=== PATIENT | male | born 1965 | race Caucasian/White ===

== ENCOUNTER 2020-10-05 13:43 | Emergency (ER) | payer MEDICARE, OTHER ==
[~2020-10-05] VITALS: Ht 185.4 cm; Wt 82.0 kg
[2020-10-05] MEDS ORDERED: HYDROmorphone 2 MG/ML VIAL IVP ONE (14:15)
[2020-10-05 14:58] LABS: BASOPHILS % (AUTO) 1.3 % (0.0-2.0); EOSINOPHILS % (AUTO) 0.3 % (1.0-6.0); HEMOGLOBIN 14.4 g/dL (13.5-17.5); LYMPHOCYTES # (AUTO) 1.5 K/uL (1.0-4.8); LYMPHOCYTES % (AUTO) 15.6 % (22.0-44.0); MEAN CORPUSCULAR HEMOGLOBIN 27.9 pg (26.0-34.0); MEAN CORPUSCULAR HGB CONC 33.5 G/dL (31.0-37.0); MEAN CORPUSCULAR VOLUME 83 fL (80-100); MONOCYTES # (AUTO) 0.5 K/uL (0.1-1.0); MONOCYTES % (AUTO) 5.6 % (2.0-9.0); NEUTROPHILS # (AUTO) 7.3 K/uL (1.8-7.7); NEUTROPHILS % (AUTO) 77.2 % (40.0-70.0); PLATELET COUNT (AUTO) 238 K/uL (150-450); RED BLOOD CELL COUNT(AUTO) 5.16 MIL/uL (4.50-5.90); RED CELL DISTRIBUTION WIDTH 14.3 % (11.5-14.5)
[2020-10-05 15:23] LABS: CALCIUM, TOTAL 9.7 mg/dL (8.8-10.5); CREATININE 1.67 mg/dL (0.60-1.30); POTASSIUM 3.9 mmol/L (3.5-5.1)
[2020-10-05 15:29] LABS: ALBUMIN 4.5 g/dL (3.4-5.0); BILIRUBIN,TOTAL 0.3 mg/dL (0.1-1.0); TOTAL PROTEIN, SERUM 8.6 g/dL (6.4-8.2)
[2020-10-05 15:30] LABS: COVID AG,FIA SOURCE NASAL SWAB
[2020-10-05 17:00] VITALS: BP 170/105
== END 2020-10-05 17:35 | disposition home or self-care (01) ==
LOC: EMS 13:43
DX: G89.29 Other chronic pain (principal); M54.9 Dorsalgia, unspecified; R06.02 Shortness of breath; R79.89 Other specified abnormal findings of blood chemistry; F32.9 Major depressive disorder, single episode, unspecified; I10 Essential (primary) hypertension; Z20.822 Contact with and (suspected) exposure to COVID-19
CPT/HCPCS: 36415; 71045; 80053; 85025; 87426; 96374; 99285; J1170

== ENCOUNTER 2020-10-07 19:23 | Emergency (ER) | payer MEDICARE, OTHER ==
[~2020-10-07] VITALS: Ht 185.4 cm; Wt 90.0 kg
[2020-10-07] MEDS ORDERED: SODIUM CHLORIDE 0.9% 1,000 ML IV ONE ×2 (22:30→23:45)
[2020-10-07] MEDS ORDERED: ONDANSETRON HCL 4 MG/2 ML VIAL IVP ONE (22:30)
[2020-10-07] MEDS ORDERED: FAMOTIDINE 10 MG/ML 2 ML VIAL IVP ONE (22:30)
[2020-10-07] MEDS ORDERED: MAG HYDROX/AL HYDROX/SIMETH 30 ML SUSP UDCUP PO ONE (22:30)
[2020-10-07] MEDS ORDERED: MORPHINE SULFATE 2 MG/ML SYRINGE IVP ONE (22:30)
[2020-10-07 23:16] LABS: BASOPHILS % (AUTO) 1.4 % (0.0-2.0); EOSINOPHILS % (AUTO) 0.1 % (1.0-6.0); HEMATOCRIT 47.3 % (41-53); HEMOGLOBIN 15.9 g/dL (13.5-17.5); LYMPHOCYTES # (AUTO) 1.6 K/uL (1.0-4.8); LYMPHOCYTES % (AUTO) 13.1 % (22.0-44.0); MEAN CORPUSCULAR HEMOGLOBIN 27.9 pg (26.0-34.0); MEAN CORPUSCULAR HGB CONC 33.5 G/dL (31.0-37.0); MEAN CORPUSCULAR VOLUME 83 fL (80-100); MONOCYTES # (AUTO) 0.7 K/uL (0.1-1.0); MONOCYTES % (AUTO) 5.3 % (2.0-9.0); NEUTROPHILS # (AUTO) 10.1 K/uL (1.8-7.7); NEUTROPHILS % (AUTO) 80.1 % (40.0-70.0); PLATELET COUNT (AUTO) 283 K/uL (150-450); RED BLOOD CELL COUNT(AUTO) 5.68 MIL/uL (4.50-5.90); RED CELL DISTRIBUTION WIDTH 14.1 % (11.5-14.5)
[2020-10-07 23:33] LABS: CREATININE 1.76 mg/dL (0.60-1.30); POTASSIUM 3.3 mmol/L (3.5-5.1)
[2020-10-07 23:39] LABS: ALBUMIN 4.5 g/dL (3.4-5.0); BILIRUBIN,TOTAL 0.5 mg/dL (0.1-1.0); TOTAL PROTEIN, SERUM 8.9 g/dL (6.4-8.2)
[2020-10-07] MEDS ORDERED: RINGERS SOLUTION,LACTATED 1,000 ML IV ONE (23:45)
[2020-10-08] MEDS ORDERED: POTASSIUM CHLORIDE 20 MEQ ER TABLET PO ONE
[2020-10-08 03:03] LABS: APPEARANCE,URINE CLEAR (CLEAR); BILIRUBIN,URINE NEGATIVE (NEGATIVE); GLUCOSE, URINE (UA) NEGATIVE (NEGATIVE); KETONES,URINE TRACE mg/dL (NEGATIVE); LEUKOCYTE ESTERASE ,URINE NEGATIVE (NEGATIVE); NITRATE,URINE NEGATIVE (NEGATIVE); OCCULT BLOOD,URINE NEGATIVE (NEGATIVE); PH,URINE 5.5 (5.0-8.0); PROTEIN,URINE POS 1+ (NEGATIVE); UROBILINOGEN,URINE 0.2 mg/dL (<=1.0)
[2020-10-08 04:19] LABS: CALCIUM, TOTAL 9.4 mg/dL (8.8-10.5); CREATININE 1.65 mg/dL (0.60-1.30); POTASSIUM 5.4 mmol/L (3.5-5.1)
[2020-10-08 04:30] VITALS: BP 154/83
== END 2020-10-08 05:39 | disposition home or self-care (01) ==
LOC: EMS 19:23
DX: E86.0 Dehydration (principal); F11.23 Opioid dependence with withdrawal; G89.29 Other chronic pain; F32.9 Major depressive disorder, single episode, unspecified; I10 Essential (primary) hypertension
CPT/HCPCS: 36415; 80048; 80053; 81003; 83605; 83690; 85025; 96361; 96374; 96375; 99285; J2270; J2405; J3490; J7030; J7120

== ENCOUNTER 2024-12-20 15:18 | Inpatient (IN) | payer MEDICARE, MEDICAID ==
[~2024-12-20] VITALS: Ht 188 cm; Wt 113.2 kg
[2024-12-20 16:13] LABS: BASOPHILS % (AUTO) 1.2 % (0.0-2.0); HEMATOCRIT 37.9 % (41-53); HEMOGLOBIN 12.4 g/dL (13.5-17.5); LYMPHOCYTES # (AUTO) 1.8 K/uL (1.0-4.8); LYMPHOCYTES % (AUTO) 28.2 % (22.0-44.0); MEAN CORPUSCULAR HEMOGLOBIN 27.7 pg (26.0-34.0); MEAN CORPUSCULAR HGB CONC 32.7 G/dL (31.0-37.0); MEAN CORPUSCULAR VOLUME 85 fL (80-100); MONOCYTES # (AUTO) 0.6 K/uL (0.1-1.0); MONOCYTES % (AUTO) 8.9 % (2.0-9.0); NEUTROPHILS # (AUTO) 3.9 K/uL (1.8-7.7); NEUTROPHILS % (AUTO) 59.7 % (40.0-70.0); PLATELET COUNT (AUTO) 203 K/uL (150-450); RED BLOOD CELL COUNT(AUTO) 4.48 MIL/uL (4.50-5.90); RED CELL DISTRIBUTION WIDTH 14.6 % (11.5-14.5); WHITE BLOOD COUNT (AUTO) 6.5 K/uL (4.5-11.0)
[2024-12-20 17:48] LABS: PROTHROMBIN TIME 10.9 SEC (9.4-11.6)
[2024-12-20] MEDS: SODIUM CHLORIDE 0.9% 1,000 ML IV ONE (18:13)
[2024-12-20 18:20] LABS: ANION GAP 10 mmol/L (8-16); CARBON DIOXIDE 29 mmol/L (22-29); CHLORIDE 99 mmol/L (98-107); CREATININE 5.22 mg/dL (0.60-1.30); GLOMERULAR FILTR. RATE CALC 11 mL/min (>60); GLUCOSE,RANDOM 85 mg/dL (70-110); POTASSIUM 4.5 mmol/L (3.5-5.1); SODIUM SERUM 138 mmol/L (136-145); UREA NITROGEN, BLOOD 92 mg/dL (7-18)
[2024-12-20 18:35] LABS: TROPONIN I-HIGH SENSITIVITY 12 ng/L (<76)
[2024-12-20 20:23] LABS: APPEARANCE,URINE CLEAR (CLEAR); BILIRUBIN,URINE NEGATIVE (NEGATIVE); COLOR,URINE LIGHT YELLOW (YELLOW); GLUCOSE, URINE (UA) 150-200 mg/dL (NEGATIVE); KETONES,URINE NEGATIVE (NEGATIVE); LEUKOCYTE ESTERASE ,URINE NEGATIVE (NEGATIVE); NITRATE,URINE NEGATIVE (NEGATIVE); OCCULT BLOOD,URINE MODERATE (NEGATIVE); PH,URINE 5.5 (5.0-8.0); PROTEIN,URINE 30-70 mg/dL (NEGATIVE); SPECIFIC GRAVITIY, URINE 1.016 (1.003-1.030); UROBILINOGEN,URINE <=1.0 mg/dL (<=1.0)
[2024-12-20 20:48] LABS: RBC,URINE 0-2 /HPF (0-2); WBC,URINE 0-2 /HPF (0-5)
[2024-12-20 20:49] LABS: BACTERIA,URINE Rare /HPF (None Seen); SQUAMOUS EPITHELIAL CELL,UR Rare /LPF (None Seen)
[2024-12-20] MEDS ORDERED: BACL10TA PO (21:29)
[2024-12-20] MEDS ORDERED: LISI40TA9 PO (21:29)
[2024-12-20] MEDS ORDERED: AMLO2.5T29 PO (21:29)
[2024-12-20] MEDS ORDERED: SUZE50TA PO (21:29)
[2024-12-20] MEDS ORDERED: METO-408 PO (21:29)
[2024-12-20] MEDS ORDERED: AMIT10TA6 PO (21:29)
[2024-12-20] MEDS ORDERED: BUME1TAB6 PO (21:29)
[2024-12-20] MEDS ORDERED: PREG100C56 PO (21:29)
[2024-12-20] MEDS ORDERED: ATOR10TA69 PO (21:29)
[2024-12-20] MEDS ORDERED: QUET25TA36 PO (21:29)
[2024-12-20] MEDS ORDERED: FENO160T16 PO (21:29)
[2024-12-20] MEDS ORDERED: CHLO500T3 PO (21:29)
[2024-12-20] MEDS ORDERED: HYDR-4584 PO (21:29)
[2024-12-20] MEDS ORDERED: DAPA10TA PO (21:29)
[2024-12-20] MEDS ORDERED: LEVO25TA4 PO (21:29)
[2024-12-20] MEDS ORDERED: ZOLPIDEM TARTRATE 5 MG TABLET PO PRN (21:30)
[2024-12-20] MEDS ORDERED: IPRATROPIUM BROMIDE 0.5 MG/2.5 ML NEB SOLUTION NEB PRN (21:30)
[2024-12-20] MEDS ORDERED: ACETAMINOPHEN 325 MG TABLET PO PRN (21:30)
[2024-12-20] MEDS ORDERED: ALBUTEROL SULFATE 2.5 MG/0.5 ML NEB SOLUTION NEB PRN (21:30)
[2024-12-20] MEDS ORDERED: ONDANSETRON HCL 4 MG/2 ML VIAL IVP PRN (21:30)
[2024-12-20] MEDS ORDERED: BISACODYL 10 MG RECTAL RECTAL SUPPOSITORY PR PRN (21:30)
[2024-12-20] MEDS ORDERED: MAGNESIUM HYDROXIDE SUSPENSION 30 ML UDCUP PO PRN (21:30)
[2024-12-20] MEDS: AMITRIPTYLINE HCL 10 MG TABLET PO SCH (22:12)
[2024-12-20] MEDS: HydrOXYzine HCL 50 MG TABLET PO SCH (22:13)
[2024-12-21] MEDS: HEPARIN SODIUM,PORCINE 5,000 UNITS/ML VIAL SQ SCH
[2024-12-21 02:00] VITALS: BP 110/79; PULSE 62; RESP 18; TEMP 97.5; O2SAT 95
[2024-12-21 04:30] VITALS: BP 98/69; PULSE 64; RESP 18; TEMP 98.1; O2SAT 97
[2024-12-21 08:19] VITALS: BP 97/64; PULSE 61; RESP 19; TEMP 97.5; O2SAT 95
[2024-12-21] MEDS ORDERED: AmLODIPine BESYLATE 2.5 MG TABLET PO SCH (09:00)
[2024-12-21] MEDS ORDERED: METOPROLOL SUCCINATE 25 MG ER TABLET PO SCH (09:00)
[2024-12-21] MEDS: LEVOTHYROXINE SODIUM 25 MCG TABLET PO SCH (09:47)
[2024-12-21] MEDS: BACLOFEN 10 MG TABLET PO SCH ×2 (09:48→15:36)
[2024-12-21] MEDS: ATORVASTATIN CALCIUM 10 MG TABLET PO SCH (09:48)
[2024-12-21] MEDS: QUEtiapine FUMARATE 25 MG TABLET PO SCH (09:49)
[2024-12-21] MEDS: PANTOPRAZOLE SODIUM 40 MG DR TABLET PO SCH (09:49)
[2024-12-21] MEDS: FENOFIBRATE 160 MG TABLET PO SCH (09:50)
[2024-12-21 12:42] VITALS: BP 126/60; PULSE 66; RESP 17; TEMP 97.5; O2SAT 97
[2024-12-21 16:40] VITALS: BP 93/65; PULSE 70; RESP 19; TEMP 98.2; O2SAT 96
[2024-12-21] MEDS ORDERED: QUEtiapine FUMARATE 25 MG TABLET PO SCH (21:00)
[2024-12-21] MEDS ORDERED: AMITRIPTYLINE HCL 10 MG TABLET PO SCH (21:00)
[2024-12-22] MEDS ORDERED: LEVOTHYROXINE SODIUM 25 MCG TABLET PO SCH (06:30)
== END 2024-12-21 20:45 | disposition left against medical advice (07) | DRG 74 ==
LOC: EMS 15:18 → EDH 21:30 → 5N 12-21 01:52
PROVIDERS: ADMIT Hospitalist; ATTEND Hospitalist
DX: G90.89 Other disorders of autonomic nervous system (principal); N17.9 Acute kidney failure, unspecified; I13.11 Hypertensive heart and chronic kidney disease without heart failure, with stage 5 chronic kidney disease, or end stage renal disease; N18.5 Chronic kidney disease, stage 5; E03.9 Hypothyroidism, unspecified; G89.4 Chronic pain syndrome; I95.9 Hypotension, unspecified; F32.A Depression, unspecified; E78.5 Hyperlipidemia, unspecified; Z86.711 Personal history of pulmonary embolism; Z82.49 Family history of ischemic heart disease and other diseases of the circulatory system; Z91.81 History of falling; Z53.29 Procedure and treatment not carried out because of patient's decision for other reasons
CPT/HCPCS: 70450; 71045; 76770; 80048; 81001; 83880; 84484; 85025; 85610; 85730; 86706; 93005; 93306; 93880; 97116; 97162; G0378; J1644; J7030; 36415-L1; 36415-TC